=== PATIENT | male | born 1945 | race Caucasian/White ===

== ENCOUNTER → 2019-01-23 | Outpatient (CLI) | payer MEDICARE, OTHER ==
[2014-10-03 23:10] VITALS: BP 154/70
[~2019-01-23] MED LIST: ACET500T68 PO; ASPI-482 PO; CARV6.2511 PO; LISI-334 PO; METF10007 PO; METO-239 PO; MULT-18 PO; OMEP20TA8 PO; PRAV20TA2 PO; RANI-348 PO; SPIR25TA5 PO
--- NOTE | 2019-01-24 02:03 | PAIN ---
DATE OF SERVICE: 01/23/2019 INITIAL CONSULTATION FOR PAIN CLINIC CHIEF COMPLAINT: Low back and right lower extremity pain. HISTORY OF PRESENT ILLNESS: The patient is a 73-year-old male who presents with history of pain in the low back and right lower extremity since about 12/01/2018. The patient reports he was working on his motor home, was underneath the dash and was twisted in an awkward position, which caused pain in his back and it has gotten somewhat better since that time, but still significantly painful with pain in low back radiating to posterior gluteus, posterolateral thigh, lateral anterior thigh and medial lower leg on the right side only. The patient reports it is worse with walking, standing, changing positions, better with sitting or lying down, but awakens from sleep about twice at night. The patient reports it does not affect her bowel or bladder control, but does affect his ability to walk with some significant fatigability in the right leg. The patient reports he has had physical therapy in the past, nothing which was significantly helpful, also chiropractic treatment and exercise, which is not significantly decreasing the pain. The patient is taking tramadol, which reports does help a small amount, but not much. The patient reports a disability rating from 0-10, 10 being the worst, is a 6 with family home responsibilities and recreation, 4 with social activity, 5 with occupation, sexual behavior and self-care activities, and 2 with life support activities. The patient did have MRI scan of the lumbar spine after seeing his neurosurgeon recently showing postoperative changes with previous right hemilaminotomy at L3-L4, L4-L5 and L5-S1 with advanced multilevel degenerative lumbar spondylosis, severe right foraminal narrowing at L4-L5 with contact of the exiting right L4 nerve root. The patient reports the pain is intermittent in intensity, rated as a stinging, burning, radiating, and aching in the right leg and low back. PAST MEDICAL HISTORY: Significant for arthritis, hypertension, type 2 diabetes, hearing loss. PREVIOUS SURGERY: Include coronary artery bypass graft in 2005 for back surgery as noted, tonsillectomy as a child and TURP. CURRENT MEDICATIONS: Well documented on the patient's chart. ALLERGIES: The patient has no known drug allergies. FAMILY HISTORY: Significant for cancers and heart disease. SOCIAL HISTORY: The patient drinks alcohol about 8 ounces 3 times a week, does not smoke, does not use any illegal, illicit or recreational drugs. He is , lives with his spouse, lives locally in [place], [place] and takes care of two of his grandchildren and makes many trips back and forth to [place], [place] as well with increased pain with extended driving. REVIEW OF SYSTEMS: The patient's review of systems is positive for those items mentioned in history of present illness. All systems reviewed and otherwise negative. It is complete, full and well documented on the patient's chart. PHYSICAL EXAMINATION: VITAL SIGNS: The patient's blood pressure 119/68, pulse 71, respirations 18, temperature 98.5 degrees Fahrenheit, height is 6 feet 2 inches, weighs 194 pounds. GENERAL: The patient is awake, alert, oriented, appropriate, very pleasant demeanor. HEENT: Shows normocephalic, atraumatic. Extraocular movements are intact and symmetrical. Oral cavity: Mucous membranes moist and pink. Dentition is intact. NECK: Shows anterior throat supple without palpable lymphadenopathy noted. Swallow reflex symmetrical. CHEST: Shows normal on inspection. Breath sounds clear to auscultation bilaterally. HEART: Shows S1, S2 clear. No murmurs auscultated. ABDOMEN: Soft, nontender, nondistended. No palpable organomegaly is noted. No rebound or guarding demonstrated. BACK: Shows spine grossly in the midline. Slight exaggeration of thoracic kyphosis and minor flattening of lumbar lordotic curvature with well-healed surgical scar noted. Lumbar paraspinous muscle shows symmetrical with inspection, on palpation shows some moderate tenderness diffusely bilaterally, but only diffusely without significant radiation. Good rotational motion is noted with extension and flexion as well as lateral rotation greater than 10 degrees right and left as well as forward flexion 45 degrees, extension rearward extension at 10 degrees without significant pain reported. EXTREMITIES: The patient's lower extremities show deep tendon reflexes at 1+ in the patellar and tendo-calcaneus tendons. Motor exam is approximately 4 on a scale of 5 on the right and 5/5 on the left dorsiflexion, extension, quadriceps and hamstring flexion. Peripheral pulses are 1+ posterior tibial. No peripheral edema is noted. Lower extremities are warm and dry to touch, equal in color and appearance. The patient's straight leg raise noted to be positive on the right about 40 degrees, decreased with knee flexion on right side. Left side is negative. Gaenslen's and Juventino's maneuvers are negative bilaterally as well. The patient is able to stand, stand on his toes without significant difficulty or loss of balance. He does walk with a slight limp, does appear to favor the right lower extremity only very mildly, not using any assistive devices to ambulate, however. The patient's skin shows warm and dry, good turgor. No edema. No sores, rashes or bruising throughout. IMPRESSION: 1. This is a 73-year-old male with low back and right lower extremity pain in a radicular fashion. 2. Lumbar MRI scan as noted. 3. Hypertension. 4. Arthritis. 5. Diabetes. PLAN: Options were discussed with the patient including conservative medical management, physical therapies, and interventional techniques. He would like to pursue interventional techniques; however, he is traveling to [place] later today within about 2 hours of his office visit actually and will be traveling back this weekend, would like to wait until he is not driving so far on the day for injection. We will have him reschedule and have him return in about 1 week to plan on lumbar epidural steroid injection at that time. CASIE DASILVA MD DR: BHARGAV/daisy JOB#: [id number] / [id number]
== END | disposition home or self-care (01) ==
LOC: PNCL 10:37
PROVIDERS: ATTEND Anesthesiology
DX: M54.5 Low back pain (principal); M79.604 Pain in right leg; I10 Essential (primary) hypertension; M19.90 Unspecified osteoarthritis, unspecified site; E11.9 Type 2 diabetes mellitus without complications
CPT/HCPCS: G0463

== ENCOUNTER → 2019-02-07 | Outpatient (CLI) | payer MEDICARE, OTHER ==
[2014-10-03 23:10] VITALS: BP 154/70
[~2019-02-07] MED LIST changes: +IOHEXOL 180 MG/ML 10 ML VIAL. ONE; +methylPREDNISolone ACETATE 40 MG/ML VIAL. ONE; +methylPREDNISolone ACETATE 80 MG/ML VIAL. ONE
--- NOTE | 2019-02-07 20:59 | PAIN ---
DATE OF SERVICE: 02/07/2019 PROGRESS NOTE FOR PAIN CLINIC DIAGNOSES: Lumbar radiculopathy with lumbar degenerative disk disease and lumbar post-laminectomy syndrome. HISTORY OF PRESENT ILLNESS: The patient is a 73-year-old male who returns for followup status post initial evaluation and return for lumbar epidural steroid injection today. The patient reports was traveling after his last visit and wished to reschedule for a day, has not been traveling. He returns today reporting still significant pain in the low back and right lower extremity, especially the right posterior gluteus, posterior thigh, lateral thigh, anterior thigh, medial thigh. It is aching and dull, radiating down the right side. The patient reports it is a 3 on a scale of 10 at its worst, 3 on average, 1 at its least over the past week and is a 3 today. The patient reports no new motor or sensory deficits, no new bowel or bladder incontinence, still sleeping well at night, does not affect him when he is sitting or lying down, but much worse with walking and standing. The patient reports no new motor or sensory deficits, no new bowel or bladder incontinence. PHYSICAL EXAMINATION: VITAL SIGNS: The patient's blood pressure 113/60, pulse 80, respirations 18, temperature 97.8 degrees Fahrenheit, height is 6 feet 2 inches, weight is 193 pounds. GENERAL: The patient is awake, alert, oriented, appropriate, very pleasant demeanor. HEENT: Shows normocephalic, atraumatic. Extraocular movements are intact and symmetrical. Oral cavity: Mucous membranes are moist and pink. Dentition is intact. NECK: Anterior throat is supple without palpable lymphadenopathy noted. Swallow reflex is symmetrical. CHEST: Shows normal on inspection. Breath sounds clear to auscultation bilaterally. HEART: Shows S1, S2 clear. No murmurs auscultated. ABDOMEN: Soft, nontender, nondistended. No palpable organomegaly is noted. No rebound or guarding demonstrated. BACK: Shows spine grossly in the midline. Normal appearing thoracic kyphosis and flattening of lumbar lordotic curvature with well-healed surgical scar in the midline. Lumbar paraspinous muscle shows symmetrical on inspection, on palpation shows some moderate tenderness diffusely throughout the middle and lower distribution of paraspinous muscles, but without radiation, no trigger points. The patient has good rotational motion of lumbar spine, both laterally as well as extension and flexion without significant difficulty. EXTREMITIES: The patient's lower extremities show deep tendon reflexes at 1+ in the patellar and tendo calcaneus tendons. Motor exam is approximately 4 on a scale of 5, but symmetrical with dorsiflexion, extension, quadriceps and hamstring flexion with quadriceps and hamstrings. Peripheral pulses are 1+ posterior tibia. No peripheral edema is noted bilaterally. Options were discussed with the patient. The patient's old chart was reviewed as his current medication regimen updated. Current review of systems updated today as well. We will proceed with a lumbar epidural steroid injection today with fluoroscopic guidance. Risks were again discussed including, but not limited to bleeding, infection, possibility of epidural hematoma, subsequent neurological compromise, dural puncture, headaches, spinal cord and/or nerve damage, side effects of steroid medication and poor results regarding pain control. The patient understands and wished to proceed. The patient will return to clinic in approximately 2 weeks for followup. She was counseled on return appointment, activity level and side effects to be aware of. DIAGNOSIS: Lumbar radiculopathy with lumbar degenerative disk disease and lumbar post-laminectomy syndrome. PROCEDURE: Lumbar epidural steroid injection, translaminar approach at L4-L5 level using C-arm fluoroscopic guidance under sterile prep and drape using local anesthetic. MEDICATION INJECTED: The patient received a total of 120 mg Depo-Medrol plus 10 mL of preservative-free normal saline and 2 mL of contrast. CONDITION AT DISCHARGE: Stable. The patient tolerated the procedure well, had no complications. CASIE DASILVA MD DR: BHARGAV/daisy JOB#: [id number] / [id number]
== END ==
LOC: PNCL 12:47
PROVIDERS: ATTEND Anesthesiology
DX: M51.16 Intervertebral disc disorders with radiculopathy, lumbar region (principal); M96.1 Postlaminectomy syndrome, not elsewhere classified
CPT/HCPCS: 62323; J1030; J1040; Q9965

== ENCOUNTER → 2019-02-25 | Outpatient (CLI) | payer MEDICARE, OTHER ==
[2014-10-03 23:10] VITALS: BP 154/70
[~2019-02-25] MED LIST changes: -IOHEXOL 180 MG/ML 10 ML VIAL. ONE; -methylPREDNISolone ACETATE 40 MG/ML VIAL. ONE; -methylPREDNISolone ACETATE 80 MG/ML VIAL. ONE
--- NOTE | 2019-02-25 20:46 | PAIN ---
DATE OF SERVICE: 02/25/2019 PROGRESS NOTE FOR PAIN CLINIC DIAGNOSES: Lumbar radiculopathy with lumbar degenerative disk disease and lumbar post-laminectomy syndrome. HISTORY OF PRESENT ILLNESS: The patient is a 73-year-old male who returns for followup status post lumbar epidural steroid injection x 1. The patient reports about 75% improvement after the injection with very good results and increase in his activity with greater ease and comfort, walking greater distances, doing household activities and has been helping his who is preparing for lumbar surgery to get around to and he is doing quite a bit better. The patient reports he is walking on treadmill for about 15 minutes at a time with good tolerance and good pain control. The patient reports still some weakness in his legs, but he is feeling better, not as much pain in the right leg as it was previously. The patient reports it is a 2 on a scale of 10 at its worst ____ past week 2 on average, 1 at its least and is a 1 today. The patient reports it is dull aching pain, which is quite tolerable, does not awaken him from sleep at night. The patient reports no new motor or sensory deficits, no new bowel or bladder incontinence or other complaints. PHYSICAL EXAMINATION: VITAL SIGNS: The patient's blood pressure is 106/60, pulse 71, respirations 16, temperature 97.2 degrees Fahrenheit, weight is 192 pounds. GENERAL: The patient is awake, alert, oriented, appropriate, very pleasant demeanor. HEENT: Head shows normocephalic, atraumatic. Extraocular movements are intact and symmetrical. Oral cavity, mucous membranes are moist and pink. Dentition is intact. NECK: Shows anterior throat supple without palpable lymphadenopathy noted. Swallow reflex symmetrical. CHEST: Shows normal on inspection. Breath sounds clear to auscultation bilaterally. HEART: Shows S1, S2 clear. No murmurs auscultated. ABDOMEN: Soft, nontender, nondistended. No palpable organomegaly is noted. No rebound or guarding demonstrated. BACK: Shows spine grossly in the midline. Normal appearing thoracic kyphosis and some minor flattening of lumbar lordotic curvature with well-healed surgical scar noted in the lumbar distribution. Lumbar paraspinous muscle shows symmetrical on inspection, on palpation shows some moderate tenderness diffusely, but only diffusely without significant radiation. EXTREMITIES: The patient's lower extremities show deep tendon reflexes 1+ in the patellar and tendo-calcaneus tendons. Motor exam is strong with 4 on a scale of 5 on the right with dorsiflexion and extension, 5/5 on the left. Peripheral pulses are 1+ posterior tibia. No peripheral edema is noted bilaterally. Options were discussed with the patient. The patient's old chart was reviewed as his current medication regimen updated. Current review of systems updated today as well. We will hold my further injection at this time as the patient is doing quite a bit better and would like to wait on any further injections. The patient with increase activity, maintain treadmill use, stretching and strengthening exercises as well and at this time, we will follow up on as needed basis. CASIE DASILVA MD DR: BHARGAV/daisy JOB#: [id number] / [id number]
== END | disposition home or self-care (01) ==
LOC: PNCL 11:09
PROVIDERS: ATTEND Anesthesiology
DX: M51.16 Intervertebral disc disorders with radiculopathy, lumbar region (principal); M96.1 Postlaminectomy syndrome, not elsewhere classified
CPT/HCPCS: G0463